=== PATIENT | female | born 1970 | race Caucasian/White ===

== ENCOUNTER 2016-08-08 13:29 | Emergency (ER) | payer OTHER ==
[~2016-08-08] VITALS: Ht 147.3 cm; Wt 61.2 kg
[2016-08-08 13:43] VITALS: BP 115/70
--- NOTE | 2016-08-08 14:28 | NUR ---
PATIENT PRESENTS TO ED WITH CONCERN AFTER INGESTING AN UNK BUG . PT STATES . DENIES N/V/D; SKIN IS PINK/WARM/DRY; AAOX4 WITH EVEN AND STEADY GAIT; LUNGS CLEAR BL; HR EVEN AND REGULAR; PT DENIES ANY FEVER, CP, SOB, OR COUGH AT THIS TIME; PATIENT STATES PAIN OF 0/10 AT THIS TIME; VSS; PATIENT POSITIONED FOR COMFORT; HOB ELEVATED; BEDRAILS UP X2; BED DOWN. ER MD MADE AWARE OF PT STATUS.
--- NOTE | 2016-08-08 14:28 | NUR ---
Patient to OF
--- NOTE | 2016-08-08 14:28 | NUR ---
Dr. Apple evaluating patient.
[2016-08-08 14:35] VITALS: BP 121/78
== END 2016-08-08 14:35 | disposition home or self-care (01) ==
LOC: MED 13:29
DX: R20.0 Anesthesia of skin (principal); R51 Headache; I10 Essential (primary) hypertension; F41.9 Anxiety disorder, unspecified
CPT/HCPCS: 99283